=== PATIENT | female | born 1950 | race Caucasian/White ===

== ENCOUNTER 2019-09-15 13:14 | Inpatient (IN) | payer MEDICARE, MEDICAID ==
[~2019-09-15] VITALS: Ht 157.5 cm; Wt 65.9 kg
[2019-09-15] VITALS (18 sets, daily range): BP systolic 105–150; BP diastolic 50–87
--- NOTE | 2019-09-15 13:41 | NUR ---
SPOKE TO DR. ACHARYA, SAID ORDER SEPSIS PROTOCOL. WENT OVER LABS AND PAPERWORK WITH HIM. PT GOT ROCEPHIN AT 8AM PER HIS REPORT NOT DUE TILL 8PM TONIGHT. PT HERE FOR STENT URETER PLACEMENT AND THEN TO BE TRANSFERED BACK FOR OPEN HEART.
--- NOTE | 2019-09-15 14:13 | NUR ---
PT'S DAUGHTER MARIA VICTORIA CALLED FOR INFORMATION. PT GAVE PERMISSION TO GIVE HER DAUGHTER UPDATES AND INFORMATION VIA PHONE. MARIA VICTORIA: ; PASSWORD:ANDI
[2019-09-15 14:39] LABS: BASOPHILS # (AUTO) 0.1 X10'3 (0-0.2); BASOPHILS % (AUTO) 0.3 % (0-1); EOSINOPHILS # (AUTO) 0.3 X10'3 (0-0.9); EOSINOPHILS % (AUTO) 1.4 % (0-6); HEMATOCRIT 33.5 % (35.0-45.0); HEMOGLOBIN 11.6 g/dl (12.0-16.0); LYMPHOCYTES # (AUTO) 0.5 X10'3 (1.1-4.8); LYMPHOCYTES % (AUTO) 2.9 % (21-51); MEAN CORPUSCULAR HEMOGLOBIN 37.1 PG (27.0-31.0); MEAN CORPUSCULAR HGB CONC 34.6 g/dL (33.0-36.5); MEAN CORPUSCULAR VOLUME 107.3 FL (78-98); MONOCYTES # (AUTO) 2.4 X10'3 (0-0.9); NEUTROPHILS # (AUTO) 15.1 X10'3 (1.8-7.7); NEUTROPHILS % (AUTO) 82.4 % (42-75); PLATELET COUNT 165 X10'3 (140-440); RED BLOOD COUNT 3.12 X10'6 (4.20-5.60); RED CELL DISTRIBUTION WIDTH 15.6 % (11.5-14.5); WHITE BLOOD COUNT 18.3 X10'3 (4.5-11.0)
[2019-09-15 14:48] LABS: PARTIAL THROMBOPLASTIN TIME 30 SECONDS (22-32)
[2019-09-15] MEDS ORDERED: levoFLOXACIN-Levaquin 750MG/D5 150 ML IV ONE (14:50)
[2019-09-15 14:51] LABS: ALANINE AMINOTRANSFERASE 69 U/L (12-78); ALBUMIN 2.1 G/DL (3.4-5.0); ALKALINE PHOSPHATASE 223 IU/L (46-116); ANION GAP 15 (8-16); ASPARTATE AMINO TRANSFERASE 83 U/L (10-37); BILIRUBIN,TOTAL 9.1 MG/DL (0.1-1.0); BLOOD UREA NITROGEN 38 MG/DL (7-18); BUN/CREATININE RATIO 24.8 (6.6-38.0); CALCIUM 8.8 MG/DL (8.5-10.1); CHLORIDE 99 MMOL/L (99-107); CREATININE 1.53 MG/DL (0.40-0.90); SODIUM 132 MMOL/L (135-145); TOTAL CARBON DIOXIDE 18.3 MMOL/L (24-32); eGFR 34 ML/MIN
[2019-09-15 14:54] LABS: TROPONIN I < 0.04 NG/ML (0.0-0.05)
[2019-09-15 14:57] LABS: ALBUMIN/GLOBULIN RATIO 0.5 (1.1-1.5); GLUCOSE 103 MG/DL (70-104); POTASSIUM 3.2 MMOL/L (3.5-5.1); TOTAL PROTEIN 6.7 G/DL (6.4-8.2)
[2019-09-15 15:01] LABS: PLATELET ESTIMATE NORMAL
[2019-09-15] MEDS: normal saline 1000ml 1,000 ML IV SCH (15:16)
[2019-09-15] MEDS ORDERED: metoclopramide 5 mg/ml inj IV PRN (15:20)
[2019-09-15] MEDS ORDERED: magnesium Cl slow-release 64mg tablet PO PRN (15:20)
[2019-09-15] MEDS ORDERED: acetaminophen 325mg tablet PO PRN ×2 (15:20)
[2019-09-15] MEDS ORDERED: mag hydrox/Alum hydrox/simeth 30ml oral suspension PO PRN (15:20)
[2019-09-15] MEDS ORDERED: magnesium 4gm in 100ml NS 100 ML IV PRN (15:20)
[2019-09-15] MEDS ORDERED: HYDROmorphone 1 mg/ml syringe IV PRN (15:20)
[2019-09-15] MEDS ORDERED: magnesium 2GM in 50ml NS 50 ML IV PRN (15:20)
[2019-09-15] MEDS ORDERED: potassium Cl 20 mEq SR tablet PO PRN ×2 (15:20)
[2019-09-15] MEDS ORDERED: HYDROcodone/acetaminophen 5mg/325mg tablet PO PRN (15:20)
[2019-09-15] MEDS ORDERED: ondansetron/PF 4mg/2ml inj IV PRN ×2 (15:20→17:05)
[2019-09-15] MEDS ORDERED: diphenhydrAMINE 50 mg/ml inj IV PRN (15:20)
[2019-09-15] MEDS ORDERED: potassium CL 10mEq/100ml bag 100 ML IV PRN ×2 (15:20)
[2019-09-15] MEDS ORDERED: acetaminophen 650mg rectal suppository RC PRN (15:20)
[2019-09-15] MEDS ORDERED: diphenhydrAMINE 25mg capsule PO PRN (15:20)
[2019-09-15] MEDS ORDERED: HYDROmorphone inj. 0.5 MG/0.5 ML DISP.SYRIN IV PRN ×3 (15:20→17:05)
[2019-09-15] MEDS ORDERED: bisacodyl 10mg suppository rectal RC PRN (15:20)
[2019-09-15] MEDS ORDERED: magnesium hydroxide 30ml (MOM) UD suspension PO PRN (15:20)
[2019-09-15 15:38] LABS: CLARITY,URINE CLOUDY (Clear); COLOR,URINE YELLOW (Yellow); GLUCOSE, URINE NEGATIVE (Neg); KETONES,URINE NEGATIVE (Neg); LEUKOCYTE ESTERASE ,URINE LARGE (Neg); NITRITES, URINE NEGATIVE (Neg); OCCULT BLOOD,URINE LARGE (Neg); PROTEIN,URINE NEGATIVE (Neg)
[2019-09-15 15:39] LABS: UA COLLECTION TYPE CLN CATCH MIDSTREAM
[2019-09-15 15:45] LABS: MUCUS STRANDS FEW /LPF (Neg); SQUAMOUS EPITHELIAL CELL,UR FEW /LPF (FEW); TRANSITIONAL EPI CELLS,URINE FEW /HPF; WBC CLUMPS,URINE MANY /HPF (NEGATIVE); WBC,URINE 50-100 /HPF (0-4)
--- NOTE | 2019-09-15 15:45 | NUR ---
IV LEAKING AND IS REDDENED AT THE SITE. IV REMOVED. ATTEMPTED TO RESTART IV X 3 UNSUCCESSFUL. IV WILL NEED RESTART TO FINISH LEVAQUIN IVPB.
[2019-09-15 15:46] LABS: BACTERIA,URINE 2+ /HPF (Neg)
[2019-09-15 15:48] LABS: HEMOGLOBIN A1C 4.5 % (4.5-6.2)
[2019-09-15 15:50] LABS: RBC,URINE TNTC /HPF (0-2)
[2019-09-15] MEDS ORDERED: SPIR100T5 PO ×2 (15:52→15:53)
[2019-09-15] MEDS ORDERED: LEVO112T5 PO (15:52)
[2019-09-15] MEDS ORDERED: URSO300C2 PO ×2 (15:52)
[2019-09-15] MEDS ORDERED: FURO40TA4 PO (15:52)
[2019-09-15] MEDS ORDERED: PANT40TA4 PO (15:52)
[2019-09-15] MEDS ORDERED: METO50TA16 PO (15:52)
[2019-09-15] MEDS ORDERED: FURO-149 PO (15:54)
[2019-09-15] MEDS ORDERED: ASPI-611 PO (15:54)
[2019-09-15] MEDS ORDERED: CHOL100025 PO (15:56)
[2019-09-15] MEDS ORDERED: CIPR500T5 PO (16:00)
--- NOTE | 2019-09-15 16:00 | NUR ---
PATIENT IS GOING TO SURGERY NOW. OR INFORMED THAT PATIENT DOES NOT HAVE IV ACCESS AT THIS TIME AND NEEDS TO COMPLETE LEVAQUIN IVPB. NURSE INSTRUCTED TO CALL RECOVERY ROOM AND INFORM THE STAFF OF THIS INFORMATION.
[2019-09-15] MEDS ORDERED: VITAMIN A PO (16:04)
--- NOTE | 2019-09-15 16:05 | NUR ---
RECOVERY ROOM CALLED AND INFORMED OF NEED FOR IV ACCESS AND COMPLETION OF LEVAQUIN IVPB. PATIENT IS HAVING ECHO AT THE BEDSIDE WITH FAMILY PRESENT.
--- NOTE | 2019-09-15 16:25 | NUR ---
TO OR PER GURIVONNE WITH TRANSPORTERS. FAMILY AT THE BEDSIDE.
[2019-09-15] MEDS ORDERED: iohexol 300 MG/1 ML 50ml polymer ONE (16:52)
[2019-09-15] MEDS ORDERED: ringers solution, lacted 1,000 ML IV SCH (17:03)
[2019-09-15] MEDS ORDERED: morphine 4 MG/ML inj SYRINge IV PRN ×2 (17:05)
[2019-09-15] MEDS ORDERED: labetalol 20mg/4ml (5mg/ml) syringe IV PRN (17:05)
[2019-09-15] MEDS ORDERED: proCHLORperazine 10 MG/2 ml inj IV PRN (17:05)
[2019-09-15] MEDS ORDERED: meperidine/PF 25mg/ml syringe IV PRN (17:05)
[2019-09-15] MEDS ORDERED: hydrALAZINE 20mg/ml inj. IV PRN (17:05)
[2019-09-15] MEDS ORDERED: LIDOcaine 2% 10ml TOPICAL JELLY (Urojet) ONE (17:29)
[2019-09-15] MEDS ORDERED: midazolam 2 mg/2 ml injection ONE (17:34)
[2019-09-15] MEDS ORDERED: propofol inj 20 ML IV ONE (17:48)
--- NOTE | 2019-09-15 17:58 | NUR ---
Received from OR via BED, accompanied by Anesthesiologist DR HAMEED and report given by Anesthesiologist. PT AWAKE, DENIES PAIN, VSS. PT VOIDED X 2 SMALL AMTS OF PINK URINE, FAMILY IN TO ASSIST W/INTERPRETATION, DR FREGOSO TO SEE PT. Addendum: 09/15/19 at 1905 by Marly Salinas RN Amended: Links added.
--- NOTE | 2019-09-15 19:38 | NUR ---
Report called to receiving nurse. Transferred via BED, 1 LARGE BAG OF PERSONAL Belongings SENT W/PT TO ROOM 350B, BLL, CALL LIGHT GIVEN, SIDE RAILS UP X 2, RECEIVING RN AT BEDSIDE TO RECEIVE PT, PTS FAMILY AT BEDSIDE. Special Issues communicated to receiving nurse. YES. Addendum: 09/15/19 at 8 by Marly Salinas RN Amended: Links added.
[2019-09-15] MEDS: K and/or MAG REPLACEMENT MC SCH (20:00)
[2019-09-15] MEDS: metoprolol tartrate 50mg tablet PO SCH (20:00)
--- NOTE | 2019-09-15 20:42 | NUR ---
Patient refusing metropolol. States she only takes when SBP greater than 140.
[2019-09-15] MEDS ORDERED: temazepam 15mg capsule PO PRN (21:00)
--- NOTE | 2019-09-15 22:28 | NUR ---
Spoke to Dr. Daly in regards to Nitro Paste to left chest. Unable to determine when patch was placed; patient and family is unable to state when placed. Dr. Daly advised that it is possible patch was placed the day prior at [facility]. Dr. Daly states that she does not want to risk removing the paste as the patient is to go for open heart surgery. States for day shift RN to research placement date and leave paste in place.
[2019-09-15] MEDS: Ursodiol 300mg capsule PO SCH (23:05)
[2019-09-16] VITALS: BP 125/62
[2019-09-16 04:00] VITALS: BP 135/66
[2019-09-16 04:55] LABS: BASOPHILS % (AUTO) 0.1 % (0-1); EOSINOPHILS # (AUTO) 0.1 X10'3 (0-0.9); EOSINOPHILS % (AUTO) 1.1 % (0-6); HEMATOCRIT 28.3 % (35.0-45.0); LYMPHOCYTES # (AUTO) 0.8 X10'3 (1.1-4.8); LYMPHOCYTES % (AUTO) 7.3 % (21-51); MEAN CORPUSCULAR HEMOGLOBIN 37.5 PG (27.0-31.0); MEAN CORPUSCULAR HGB CONC 35.3 g/dL (33.0-36.5); MEAN CORPUSCULAR VOLUME 106.3 FL (78-98); MEAN PLATELET VOLUME 7.9 FL (7.4-10.4); MONOCYTES # (AUTO) 1.8 X10'3 (0-0.9); MONOCYTES % (AUTO) 15.3 % (2-12); NEUTROPHILS # (AUTO) 8.8 X10'3 (1.8-7.7); NEUTROPHILS % (AUTO) 76.2 % (42-75); PLATELET COUNT 145 X10'3 (140-440); RED BLOOD COUNT 2.66 X10'6 (4.20-5.60); RED CELL DISTRIBUTION WIDTH 15.2 % (11.5-14.5); WHITE BLOOD COUNT 11.6 X10'3 (4.5-11.0)
[2019-09-16 05:02] LABS: PARTIAL THROMBOPLASTIN TIME 35 SECONDS (22-32)
[2019-09-16 05:09] LABS: ALANINE AMINOTRANSFERASE 55 U/L (12-78); ALBUMIN 1.7 G/DL (3.4-5.0); ALKALINE PHOSPHATASE 203 IU/L (46-116); ASPARTATE AMINO TRANSFERASE 71 U/L (10-37); BLOOD UREA NITROGEN 28 MG/DL (7-18); BUN/CREATININE RATIO 23.7 (6.6-38.0); CALCIUM 8.5 MG/DL (8.5-10.1); CREATININE 1.18 MG/DL (0.40-0.90); HDL CHOLESTEROL 8 MG/DL (35-60); LDL CHOLESTEROL 30 MG/DL (50-100); MAGNESIUM 1.9 MG/DL (1.5-2.4); TOTAL CARBON DIOXIDE 19.7 MMOL/L (24-32); eGFR 45 ML/MIN
[2019-09-16 05:26] LABS: ALBUMIN/GLOBULIN RATIO 0.4 (1.1-1.5); GLUCOSE 111 MG/DL (70-104); POTASSIUM 4.7 MMOL/L (3.5-5.1); SODIUM 135 MMOL/L (135-145); TOTAL PROTEIN 5.7 G/DL (6.4-8.2); TRIGLYCERIDES 87 MG/DL (20-135)
[2019-09-16 05:30] LABS: ANION GAP 11 (8-16); CHLORIDE 104 MMOL/L (99-107)
[2019-09-16 05:31] LABS: CHOLESTEROL < 50 MG/DL (0-200)
--- NOTE | 2019-09-16 06:30 | NUR ---
Problems reprioritized. Patient report given, questions answered & plan of care reviewed with JOVI Rosa.
--- NOTE | 2019-09-16 06:33 | NUR ---
Patient in room [facility]. I have received report from JOVI Grimm and had the opportunity to ask questions and assume patient care.
[2019-09-16] MEDS: K and/or MAG REPLACEMENT MC SCH ×2 (06:58→20:00)
[2019-09-16 07:00] VITALS: BP_SYST 113; BP_SYST 147; BP_DIAS 55; BP_DIAS 57
[2019-09-16] MEDS: normal saline 1000ml 1,000 ML IV SCH (08:01)
[2019-09-16] MEDS: CefTRIAXone/D5W-Rocephin 1gm 50 ML IV SCH (08:03)
[2019-09-16] MEDS: Ursodiol 300mg capsule PO SCH ×2 (08:07→20:50)
[2019-09-16] MEDS: levoTHYROXINE 112mcg tablet PO SCH (08:08)
[2019-09-16] MEDS: pantoprazole 40mg Tablet.DR PO SCH (08:08)
[2019-09-16] MEDS: aspirin 81mg tablet.DR PO SCH (08:08)
[2019-09-16] MEDS: spironolactone 25 MG tablet PO SCH (08:08)
[2019-09-16] MEDS: metoprolol tartrate 50mg tablet PO SCH ×2 (08:08→20:00)
[2019-09-16 11:00] VITALS: BP 119/49
[2019-09-16] MEDS: HYDROcodone/acetaminophen 10/325mg tab PO PRN (13:57)
[2019-09-16 18:00] VITALS: BP 110/65
--- NOTE | 2019-09-16 18:05 | NUR ---
Problems reprioritized. Patient report given, questions answered & plan of care reviewed with JOVI Porter.
--- NOTE | 2019-09-16 18:07 | NUR ---
Patient in room [facility]. I have received report from JOVI Rosa and had the opportunity to ask questions and assume patient care.
--- NOTE | 2019-09-16 19:00 | NUR ---
Nitro paste remains on patients left upper chest. Paged Dr. Whitehead to obtain orders. Per previous conversation with Malika the night prior, does not want paste removed considering patient is to have open heart surgery.
[2019-09-16] MEDS: lactobacillus rhamnosus 10,000 MMU CELLS/CAPSULE PO SCH (20:50)
--- NOTE | 2019-09-16 21:01 | NUR ---
Removed nitro paste from chest; per phamacy, medication would no longer be working. Dr Daly notified. Asked if we could advance diet and advised we have no information as to when patient is supposed to be transferred for open heart surgery. Malika wants more information prior to advancing diet just in case patient should be transferred in a hurry. Left diet at clear liquid.
[2019-09-17] VITALS: BP 128/50
[2019-09-17] MEDS: normal saline 1000ml 1,000 ML IV SCH ×2 (03:53→23:42)
[2019-09-17] MEDS: HYDROcodone/acetaminophen 10/325mg tab PO PRN (04:08)
[2019-09-17 05:28] LABS: PARTIAL THROMBOPLASTIN TIME 32 SECONDS (22-32)
[2019-09-17 05:30] LABS: BASOPHILS % (AUTO) 0.2 % (0-1); EOSINOPHILS # (AUTO) 0.3 X10'3 (0-0.9); EOSINOPHILS % (AUTO) 3.9 % (0-6); HEMATOCRIT 31.3 % (35.0-45.0); LYMPHOCYTES # (AUTO) 1.1 X10'3 (1.1-4.8); LYMPHOCYTES % (AUTO) 12.7 % (21-51); MEAN CORPUSCULAR HEMOGLOBIN 37.2 PG (27.0-31.0); MEAN CORPUSCULAR HGB CONC 35.3 g/dL (33.0-36.5); MEAN CORPUSCULAR VOLUME 105.3 FL (78-98); MEAN PLATELET VOLUME 7.7 FL (7.4-10.4); MONOCYTES # (AUTO) 1.3 X10'3 (0-0.9); MONOCYTES % (AUTO) 14.3 % (2-12); NEUTROPHILS # (AUTO) 6.2 X10'3 (1.8-7.7); NEUTROPHILS % (AUTO) 68.9 % (42-75); PLATELET COUNT 169 X10'3 (140-440); RED BLOOD COUNT 2.97 X10'6 (4.20-5.60); RED CELL DISTRIBUTION WIDTH 15.2 % (11.5-14.5)
[2019-09-17 05:36] LABS: ALANINE AMINOTRANSFERASE 57 U/L (12-78); ALBUMIN 1.8 G/DL (3.4-5.0); ALKALINE PHOSPHATASE 190 IU/L (46-116); ANION GAP 7 (8-16); ASPARTATE AMINO TRANSFERASE 79 U/L (10-37); BLOOD UREA NITROGEN 24 MG/DL (7-18); BUN/CREATININE RATIO 20.7 (6.6-38.0); CALCIUM 9.3 MG/DL (8.5-10.1); CHLORIDE 107 MMOL/L (99-107); CREATININE 1.16 MG/DL (0.40-0.90); MAGNESIUM 1.9 MG/DL (1.5-2.4); SODIUM 135 MMOL/L (135-145); TOTAL CARBON DIOXIDE 20.6 MMOL/L (24-32); eGFR 46 ML/MIN
[2019-09-17 05:40] LABS: ALBUMIN/GLOBULIN RATIO 0.4 (1.1-1.5); GLUCOSE 82 MG/DL (70-104); POTASSIUM 4.7 MMOL/L (3.5-5.1)
--- NOTE | 2019-09-17 05:59 | NUR ---
right shoulder IV infiltrated. Pt arm cool and edematous. Removed IV and elevated right arm. New IV started on left forearm.
--- NOTE | 2019-09-17 06:12 | NUR ---
Problems reprioritized. Patient report given, questions answered & plan of care reviewed with JOVI Rosa.
--- NOTE | 2019-09-17 06:14 | NUR ---
Patient in room [facility]. I have received report from JOVI Porter and had the opportunity to ask questions and assume patient care.
[2019-09-17] MEDS: K and/or MAG REPLACEMENT MC SCH ×2 (06:23→20:00)
[2019-09-17 07:00] VITALS: BP 116/50
[2019-09-17] MEDS: metoprolol tartrate 50mg tablet PO SCH ×2 (07:04→20:00)
[2019-09-17] MEDS: spironolactone 25 MG tablet PO SCH (07:05)
--- NOTE | 2019-09-17 07:06 | NUR ---
Aldactone 100mg ordered Q48 hours, dose given yesterday 24hours ago
[2019-09-17] MEDS: CefTRIAXone/D5W-Rocephin 1gm 50 ML IV SCH (07:12)
[2019-09-17] MEDS: pantoprazole 40mg Tablet.DR PO SCH (07:14)
[2019-09-17] MEDS: Ursodiol 300mg capsule PO SCH ×2 (07:14→20:25)
[2019-09-17] MEDS: furosemide 40mg tablet PO SCH (07:14)
[2019-09-17] MEDS: levoTHYROXINE 112mcg tablet PO SCH (07:14)
[2019-09-17] MEDS: aspirin 81mg tablet.DR PO SCH (07:14)
[2019-09-17] MEDS: lactobacillus rhamnosus 10,000 MMU CELLS/CAPSULE PO SCH ×2 (07:14→20:25)
[2019-09-17] MEDS: lactulose 20gm/30ml cup PO SCH ×2 (10:39→20:25)
[2019-09-17 11:00] VITALS: BP 104/50
[2019-09-17 11:44] VITALS: BP_SYST 119; BP_SYST 131; BP_SYST 151; BP_SYST 157; BP_DIAS 53; BP_DIAS 61; BP_DIAS 70
--- NOTE | 2019-09-17 12:14 | NUR ---
PAGER ID: [phone] MESSAGE: RM 350B Teresita Perez was positive on orthostatics: Sitting was 157/70 and standing was 131/53. Patient also felt symptomatic. JOVI Rosa Ext [id number]
[2019-09-17] MEDS ORDERED: normal saline 1000ml 1,000 ML IV ONE (12:35)
[2019-09-17 14:26] VITALS: BP_SYST 11; BP_SYST 128; BP_SYST 137; BP_DIAS 55; BP_DIAS 63; BP_DIAS 70
--- NOTE | 2019-09-17 14:40 | NUR ---
PAGER ID: [phone] MESSAGE: RM 350B Teresita Perez: Orthostatics were negative, but patient feels so weak to the point she does not feel safe attempting to ambulate the romo today. JOVI Rosa Ext [phone]
[2019-09-17 18:00] VITALS: BP_SYST 127; BP_SYST 132; BP_SYST 140; BP_DIAS 43; BP_DIAS 57; BP_DIAS 64
--- NOTE | 2019-09-17 18:47 | NUR ---
Problems reprioritized. Patient report given, questions answered & plan of care reviewed with JOVI Serrano.
[2019-09-18] VITALS: BP 112/57
--- NOTE | 2019-09-18 06:37 | NUR ---
Problems reprioritized. Patient report given, questions answered & plan of care reviewed with Barby ESPANA. Addendum: 09/18/19 at 0637 by Maggie Perez RN Amended: Links added.
--- NOTE | 2019-09-18 06:40 | NUR ---
Patient in room [facility]. I have received report from Lovely ESPANA and had the opportunity to ask questions and assume patient care.
[2019-09-18 07:28] VITALS: BP 114/74
[2019-09-18] MEDS: K and/or MAG REPLACEMENT MC SCH ×2 (08:00→20:00)
[2019-09-18] MEDS: levoTHYROXINE 112mcg tablet PO SCH (08:06)
[2019-09-18] MEDS: Ursodiol 300mg capsule PO SCH ×2 (08:06→20:09)
[2019-09-18] MEDS: lactobacillus rhamnosus 10,000 MMU CELLS/CAPSULE PO SCH ×2 (08:06→20:09)
[2019-09-18] MEDS: aspirin 81mg tablet.DR PO SCH (08:06)
[2019-09-18] MEDS: pantoprazole 40mg Tablet.DR PO SCH (08:06)
[2019-09-18] MEDS: metoprolol tartrate 50mg tablet PO SCH ×2 (08:07→20:00)
[2019-09-18] MEDS: CefTRIAXone/D5W-Rocephin 1gm 50 ML IV SCH (08:08)
[2019-09-18] MEDS: lactulose 20gm/30ml cup PO SCH ×2 (08:08→20:09)
[2019-09-18] MEDS: spironolactone 25 MG tablet PO SCH (08:08)
[2019-09-18 11:00] VITALS: BP_SYST 118; BP_SYST 122; BP_SYST 125; BP_DIAS 52; BP_DIAS 66
[2019-09-18 12:00] VITALS: BP 118/52
[2019-09-18 18:00] VITALS: BP 119/58
--- NOTE | 2019-09-18 18:44 | NUR ---
Problems reprioritized. Patient report given, questions answered & plan of care reviewed with Lovely ESPANA.
[2019-09-18] MEDS: normal saline 1000ml 1,000 ML IV SCH (20:10)
[2019-09-19] VITALS: BP 132/49
[2019-09-19 03:00] VITALS: BP_SYST 136; BP_SYST 139; BP_DIAS 62; BP_DIAS 68
--- NOTE | 2019-09-19 06:27 | NUR ---
Problems reprioritized. Patient report given, questions answered & plan of care reviewed with Barby ESPANA. Addendum: 09/19/19 at 0628 by Maggie Perez RN Amended: Links added.
--- NOTE | 2019-09-19 06:52 | NUR ---
Patient in room [facility]. I have received report from Maggie ESPANA and had the opportunity to ask questions and assume patient care.
[2019-09-19 08:00] VITALS: BP 118/50
[2019-09-19] MEDS: K and/or MAG REPLACEMENT MC SCH ×2 (08:00→20:00)
[2019-09-19] MEDS: lactobacillus rhamnosus 10,000 MMU CELLS/CAPSULE PO SCH ×2 (08:03→20:20)
[2019-09-19] MEDS: CefTRIAXone/D5W-Rocephin 1gm 50 ML IV SCH (08:03)
[2019-09-19] MEDS: furosemide 40mg tablet PO SCH (08:06)
[2019-09-19] MEDS: aspirin 81mg tablet.DR PO SCH (08:06)
[2019-09-19] MEDS: pantoprazole 40mg Tablet.DR PO SCH (08:06)
[2019-09-19] MEDS: levoTHYROXINE 112mcg tablet PO SCH (08:06)
[2019-09-19] MEDS: metoprolol tartrate 50mg tablet PO SCH ×4 (08:07→20:24)
[2019-09-19] MEDS: spironolactone 25 MG tablet PO SCH (08:08)
[2019-09-19] MEDS: lactulose 20gm/30ml cup PO SCH ×2 (08:08→20:00)
[2019-09-19] MEDS: Ursodiol 300mg capsule PO SCH ×2 (08:14→20:19)
[2019-09-19] MEDS: normal saline 1000ml 1,000 ML IV SCH (10:16)
[2019-09-19 11:00] VITALS: BP 110/71
[2019-09-19 18:00] VITALS: BP 123/60
--- NOTE | 2019-09-19 18:49 | NUR ---
Problems reprioritized. Patient report given, questions answered & plan of care reviewed with Fredis ESPANA.
--- NOTE | 2019-09-19 18:51 | NUR ---
I have received report from JOVI TAPIA and had the opportunity to ask questions and assume patient care.
--- NOTE | 2019-09-19 20:25 | NUR ---
patient refused her meTOPROLOL shes told me it lowers her BP to very low numbers over night. wants her to only take it in the AM Addendum: 09/19/19 at 5706 by Nils Mcintosh RN Her LAWSON
--- NOTE | 2019-09-19 23:18 | NUR ---
2020: Patient stated she does have some chest tightness at the time I did her assessment. It is on the left side breast area. She was asymptomatic, VSS 127/57/, HR 62,. I called tele and they said she was in sinus rhythm with hear rate in the 60s. She gets chest pain frequently, Physicians are aware. Patient is awaiting CABG. 2099 Patient is resting with eyes closed in no apparent distress. Addendum: 09/19/19 at 2323 by Nils Mcintosh RN Amended: Links added.
[2019-09-20 00:55] VITALS: BP 111/53
--- NOTE | 2019-09-20 01:29 | NUR ---
Patient refused orthostatics to be done this shift Addendum: 09/20/19 at 0130 by Nils Mcintosh RN Amended: Links added.
[2019-09-20] MEDS: normal saline 1000ml 1,000 ML IV SCH (05:21)
--- NOTE | 2019-09-20 06:37 | NUR ---
Problems reprioritized. Patient report given, questions answered & plan of care reviewed with JOVI Dior.
--- NOTE | 2019-09-20 06:42 | NUR ---
Received patient report from Nils ESPANA,had the opportunity to ask questions and assume care.
[2019-09-20 07:00] VITALS: BP 101/41
[2019-09-20] MEDS: lactulose 20gm/30ml cup PO SCH (08:00)
[2019-09-20] MEDS: CefTRIAXone/D5W-Rocephin 1gm 50 ML IV SCH (08:42)
[2019-09-20] MEDS: lactobacillus rhamnosus 10,000 MMU CELLS/CAPSULE PO SCH (08:43)
[2019-09-20] MEDS: levoTHYROXINE 112mcg tablet PO SCH (08:43)
[2019-09-20] MEDS: Ursodiol 300mg capsule PO SCH (08:43)
[2019-09-20] MEDS: aspirin 81mg tablet.DR PO SCH (08:43)
[2019-09-20] MEDS: pantoprazole 40mg Tablet.DR PO SCH (08:44)
[2019-09-20 11:00] VITALS: BP 111/44
[2019-09-20 11:22] LABS: BASOPHILS % (AUTO) 0.8 % (0-1); EOSINOPHILS # (AUTO) 0.1 X10'3 (0-0.9); HEMOGLOBIN 10.5 g/dl (12.0-16.0); LYMPHOCYTES # (AUTO) 0.8 X10'3 (1.1-4.8); LYMPHOCYTES % (AUTO) 14.9 % (21-51); MEAN CORPUSCULAR HEMOGLOBIN 37.4 PG (27.0-31.0); MEAN CORPUSCULAR HGB CONC 35.1 g/dL (33.0-36.5); MEAN CORPUSCULAR VOLUME 106.3 FL (78-98); MEAN PLATELET VOLUME 7.4 FL (7.4-10.4); MONOCYTES # (AUTO) 0.7 X10'3 (0-0.9); MONOCYTES % (AUTO) 12.7 % (2-12); NEUTROPHILS # (AUTO) 3.7 X10'3 (1.8-7.7); NEUTROPHILS % (AUTO) 69.6 % (42-75); PLATELET COUNT 143 X10'3 (140-440); RED BLOOD COUNT 2.82 X10'6 (4.20-5.60); RED CELL DISTRIBUTION WIDTH 15.2 % (11.5-14.5); WHITE BLOOD COUNT 5.4 X10'3 (4.5-11.0)
[2019-09-20 11:35] LABS: ALBUMIN 1.7 G/DL (3.4-5.0); ANION GAP 9 (8-16); BLOOD UREA NITROGEN 14 MG/DL (7-18); BUN/CREATININE RATIO 12.5 (6.6-38.0); CALCIUM 8.4 MG/DL (8.5-10.1); CHLORIDE 106 MMOL/L (99-107); CREATININE 1.12 MG/DL (0.40-0.90); SODIUM 134 MMOL/L (135-145); TOTAL CARBON DIOXIDE 19.4 MMOL/L (24-32); eGFR 48 ML/MIN
[2019-09-20 11:46] LABS: GLUCOSE 116 MG/DL (70-104); POTASSIUM 3.5 MMOL/L (3.5-5.1)
[2019-09-20] MEDS ORDERED: CEFD300C3 PO (12:02)
[2019-09-20] MEDS ORDERED: NITR0.4T51 SL (12:02)
[2019-09-20] MEDS ORDERED: ISOS30TA6 PO (12:22)
[2019-09-20 12:38] LABS: PLATELET ESTIMATE NORMAL
[2019-09-20 12:39] LABS: HYPOCHROMASIA 1+
--- NOTE | 2019-09-20 17:30 | NUR ---
Pt DC to home with daughters. Pt and family verbalize understanding of all DC orders. 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 Pt is A & O, no chest pain or discomfort at this time. Pt and family packed and carried out all belongings. Medications efaxed to pharmacy in [facility]. Pt was wheeled out to front where pt was driven home by her family.
== END 2019-09-20 17:10 | disposition home or self-care (01) | DRG 853 ==
LOC: ER 13:15 → ED HOLD 15:16 → SUR 3N 19:30 → UNDODISIN 09-17 13:57
PROVIDERS: ADMIT Family Medicine; ATTEND Family Medicine
PROC: BT1D1ZZ Fluoroscopy of Right Kidney, Ureter and Bladder using Low Osmolar Contrast (ICD-10-PCS; 2019-09-15)
PROC: 0T768DZ Dilation of Right Ureter with Intraluminal Device, Via Natural or Artificial Opening Endoscopic (ICD-10-PCS; principal; 2019-09-15 17:31)
DX: A41.9 Sepsis, unspecified organism (principal); E43 Unspecified severe protein-calorie malnutrition; N13.6 Pyonephrosis; E87.1 Hypo-osmolality and hyponatremia; I24.9 Acute ischemic heart disease, unspecified; N17.9 Acute kidney failure, unspecified; K75.81 Nonalcoholic steatohepatitis (NASH); R74.0 Nonspecific elevation of levels of transaminase and lactic acid dehydrogenase [LDH]; Z76.82 Awaiting organ transplant status; F32.9 Major depressive disorder, single episode, unspecified; E03.9 Hypothyroidism, unspecified; E78.5 Hyperlipidemia, unspecified; E87.6 Hypokalemia; F41.1 Generalized anxiety disorder; I10 Essential (primary) hypertension; I25.10 Atherosclerotic heart disease of native coronary artery without angina pectoris; J44.9 Chronic obstructive pulmonary disease, unspecified; K74.60 Unspecified cirrhosis of liver; Z87.442 Personal history of urinary calculi; Z90.710 Acquired absence of both cervix and uterus; Z88.0 Allergy status to penicillin; Z79.82 Long term (current) use of aspirin; Z79.899 Other long term (current) drug therapy; Z68.26 Body mass index [BMI] 26.0-26.9, adult
CPT/HCPCS: 36415; 74420; 80048; 80053; 80061; 81001; 83036; 83735; 84145; 84443; 84484; 85025; 85610; 85730; 87040; 87081; 87088; 93005; 93306; 96374; 97116; 97161; 97530; 99285; C1758; C1769; C2617; G0378; J0696; J1956; J2175; J2250; J2405; J2704; J7030; J7120; Q9967